=== PATIENT | female | born 1995 | race Two or more races ===

== ENCOUNTER 2019-10-30 13:07 | Inpatient (IN) | payer OTHER ==
[~2019-10-30 13:07] MED LIST: Bupivacaine 0.25% HCL 30 ML VIAL ONE
[2019-10-30] MEDS ORDERED: NS / Oxytocin 40 units/1000ml 1,000 ML IV PRN (22:02)
[2019-10-30] MEDS ORDERED: Lidocaine 1% (PF) 30 ML VIAL SC PRN (22:02)
[2019-10-30] MEDS ORDERED: hydrALAZINE 20 MG/ML VIAL SLOW IVP PRN (22:02)
[2019-10-30] MEDS ORDERED: Diphenoxylate HCl/Atropine Tablet PO PRN ×2 (22:02)
[2019-10-30] MEDS ORDERED: Ondansetron PF 4 MG/2 ML Vial IVP PRN (22:02)
[2019-10-30] MEDS ORDERED: Promethazine HCl 25 MG/ML VIAL IM PRN (22:02)
[2019-10-30] MEDS ORDERED: HYDROcodone/Acetaminophen 5/325 mg Tablet PO PRN ×2 (22:02)
[2019-10-30] MEDS ORDERED: Acetaminophen 500 MG TAB PO PRN (22:02)
[2019-10-30] MEDS ORDERED: Docusate 100 MG CAP PO PRN (22:02)
[2019-10-30] MEDS ORDERED: Misoprostol 200 MCG TAB PR PRN (22:02)
[2019-10-30] MEDS ORDERED: Zolpidem Tartrate 5 MG TAB PO PRN (22:02)
[2019-10-30] MEDS ORDERED: Ibuprofen 800 MG TAB PO PRN (22:02)
[2019-10-30 22:28] LABS: Amnisure Test RUPTURE DETECTED (No Rupture)
[2019-10-30 22:29] VITALS: BMI 28.9
[2019-10-30 22:29] LABS: Amnisure Internal Control QC ACCEPTABLE (ACCEPTABLE)
[2019-10-30] MEDS: Lactated Ringer's 1,000 ML IV SCH (22:30)
[2019-10-30] MEDS ORDERED: NS w/ Oxytocin 10 units 500 ML IV SCH (22:45)
[2019-10-30 23:36] LABS: Mean Corpuscular Volume 95.8 fL (78.0-98.0)
[2019-10-31 00:01] LABS: HBSAg Index 0.19 S/CO (0-0.99); Hep B Surf Ag Non-Reactive S/CO (NonReactive)
[2019-10-31 00:02] LABS: Syphilis Antibody Nonreactive (Nonreactive); Syphilis Antibody Index 0.04 S/CO (<1.00 Non-Reactive)
[2019-10-31 00:24] LABS: Hemoglobin 12.9 g/dL (12.0-16.0); Mean Corpuscular HGB CONC 34.9 g/dL (32.0-36.0); Mean Corpuscular Hemoglobin 33.5 pg (27.0-31.0); Mean Platelet Volume 11.4 fL (7.4-10.4); Platelet Count 134 thou/uL (130-400); RBC Distribution Width 12.3 % (11.5-14.5); Red Blood Cell (RBC) Count 3.87 mill/uL (4.20-5.40); White Blood Cell (WBC) Count 11.2 thou/uL (4.8-10.8)
[2019-10-31] MEDS: Lactated Ringer's 1,000 ML IV SCH ×3 (09:00→22:37)
[2019-10-31] MEDS ORDERED: Fentanyl 4 mcg/Bup 0.1% Cadd 100 ML ONE (09:56)
[2019-10-31] MEDS ORDERED: Naloxone HCl 0.4 mg/ml Vial IVP PRN ×2 (10:47)
[2019-10-31] MEDS ORDERED: Lactated Ringer's 500 ML IV PRN (10:47)
[2019-10-31] MEDS ORDERED: ePHEDrine/0.9% NaCl/PF SYRINGE 50 mg/10 ml SLOW IVP PRN (10:47)
[2019-10-31] MEDS ORDERED: Promethazine HCl 25 MG/ML VIAL IM PRN (10:47)
[2019-10-31] MEDS ORDERED: Ondansetron PF 4 MG/2 ML Vial IVP PRN ×2 (10:47→22:41)
[2019-10-31] MEDS ORDERED: diphenhydrAMINE 50 MG/ML VIAL IVP PRN (10:47)
[2019-10-31] MEDS ORDERED: Acetaminophen 325 MG TAB PO PRN (10:47)
[2019-10-31] MEDS ORDERED: Communication Order-Pharmacy FS PRN (11:00)
[2019-10-31] MEDS ORDERED: Fentanyl 4 mcg/Bupivacaine 0.1% Cassette 100 ML EPIDURAL SCH (11:00)
[2019-10-31] MEDS: Misoprostol 100 MCG TAB VAG SCH ×3 (19:40→22:37)
[2019-10-31] MEDS: NS w/ Oxytocin 10 units 500 ML IV SCH (22:36)
[2019-10-31] MEDS ORDERED: Lanolin Ointment 7 GM TUBE TOP PRN (22:41)
[2019-10-31] MEDS ORDERED: Benzocaine-Menthol 82.5 ML CAN TOP PRN (22:41)
[2019-10-31] MEDS ORDERED: diphenhydrAMINE 25 MG CAP PO PRN (22:41)
[2019-10-31] MEDS ORDERED: hydrALAZINE 20 MG/ML VIAL SLOW IVP PRN (22:41)
[2019-10-31] MEDS ORDERED: Bisacodyl 10 MG SUPP PR PRN (22:41)
[2019-10-31] MEDS ORDERED: Acetaminophen/Codeine 30-300mg Tablet PO PRN (22:41)
[2019-10-31] MEDS ORDERED: Milk Of Magnesia 30 ML UDCUP PO PRN (22:41)
[2019-10-31] MEDS ORDERED: Preparation H Ointment 57 gram tube RC PRN (22:41)
[2019-10-31] MEDS ORDERED: Misoprostol 200 MCG TAB VAG PRN (22:41)
[2019-10-31] MEDS ORDERED: Zolpidem Tartrate 5 MG TAB PO PRN (22:41)
[2019-10-31] MEDS ORDERED: NS / Oxytocin 40 units/1000ml 1,000 ML IV SCH (22:45)
[2019-11-01] MEDS: Acetaminophen/Codeine 30-300mg Tablet PO PRN ×4 (00:13→17:20)
[2019-11-01] MEDS: NS w/ Oxytocin 10 units 500 ML IV SCH (00:23)
[2019-11-01] MEDS: Ibuprofen 800 MG TAB PO SCH ×3 (05:41→21:38)
[2019-11-01] MEDS ORDERED: Adacel (T-DAP) 0.5 ML SYRINGE IM ONE (09:00)
[2019-11-01] MEDS: Prenatal Vitamin 1 TAB PO SCH (09:06)
[2019-11-01] MEDS: Docusate Calcium (SURFAK) 240 MG CAP PO SCH ×2 (09:06→21:38)
[2019-11-01] MEDS: Ferrous Sulfate 325 MG TAB PO SCH ×2 (09:08→17:22)
[2019-11-02] MEDS: Ibuprofen 800 MG TAB PO SCH (05:28)
[2019-11-02] MEDS: Acetaminophen/Codeine 30-300mg Tablet PO PRN ×2 (05:30→09:17)
[2019-11-02 08:34] VITALS: BP 123/86; TEMP 98.1
[2019-11-02] MEDS: Docusate Calcium (SURFAK) 240 MG CAP PO SCH (09:17)
[2019-11-02] MEDS: Prenatal Vitamin 1 TAB PO SCH (09:17)
[2019-11-02] MEDS: Ferrous Sulfate 325 MG TAB PO SCH (09:18)
== END 2019-11-02 12:34 | disposition home or self-care (01) | DRG 807 ==
LOC: L&D 21:28 → 3SE 10-31 21:59 → EDSTATUS 11-01 14:34
PROVIDERS: ADMIT Obstetrics & Gynecology; ATTEND Obstetrics & Gynecology
PROC: 10E0XZZ Delivery of Products of Conception, External Approach (ICD-10-PCS; principal; 2019-10-31)
PROC: 3E033VJ Introduction of Other Hormone into Peripheral Vein, Percutaneous Approach (ICD-10-PCS; 2019-10-31)
DX: O36.63X0 Maternal care for excessive fetal growth, third trimester, not applicable or unspecified (principal); Z37.0 Single live birth; O70.0 First degree perineal laceration during delivery; Z3A.39 39 weeks gestation of pregnancy
CPT/HCPCS: 36415; 51702; 84112; 85027; 86780; 86850; 86900; 86901; 87340; 90715; J2405; J2590; S0020